=== PATIENT | male | born 1995 ===

== ENCOUNTER 2025-06-29 22:48 | Emergency (ER) | payer MEDICAID ==
[~2025-06-29] VITALS: Ht 167.6 cm; Wt 59.0 kg
== END 2025-06-30 02:14 | disposition left against medical advice (07) ==
LOC: ER 22:48
DX: M79.604 Pain in right leg (principal); M79.89 Other specified soft tissue disorders; Z53.29 Procedure and treatment not carried out because of patient's decision for other reasons
CPT/HCPCS: 73562-RT

== ENCOUNTER 2025-07-05 17:56 | Emergency (ER) | payer MEDICAID ==
[~2025-07-05] VITALS: Ht 170.2 cm; Wt 59.0 kg
[2025-07-05] MEDS ORDERED: Trimethoprim/Sulfamethoxazole DS Tab PO ONE (18:55)
[2025-07-05] MEDS ORDERED: FAMO20 PO (19:20)
[2025-07-05] MEDS ORDERED: IBUP600 PO (19:20)
== END 2025-07-05 19:29 | disposition home or self-care (01) ==
LOC: ER 17:56
DX: S83.91XA Sprain of unspecified site of right knee, initial encounter (principal); W20.8XXA Other cause of strike by thrown, projected or falling object, initial encounter
CPT/HCPCS: 99283; A9270